=== PATIENT | female | born 1965 | race Hispanic/Latino ===

== ENCOUNTER 2018-01-17 15:31 | Observation (INO) | payer OTHER ==
[~2018-01-17] VITALS: Ht 152.4 cm; Wt 68.1 kg
[~2018-01-17 15:31] MED LIST: METFORMIN HCL500 MG PO; NAPROXEN PO; PRAVASTATIN SOD40 MG PO; TRAMADOL-ACETAMI1 EA PO; VITAMIN D250000 UNIT PO
[2018-01-17] MEDS ORDERED: ONDANSETRON HCL INJ 2 MG/ML VIAL IV STA ×2 (15:44→18:45)
[2018-01-17] MEDS ORDERED: SODIUM CHLORIDE 0.9% 1000ML 1,000 ML IV SCH (15:45)
--- NOTE | 2018-01-17 16:53 | Diagnostic Imaging Report ---
Examination: CT head without contrast Clinical Indication: Headache. Nausea. Vomiting. Photophobia. Dizziness. Technique: Transaxial noncontrast images from the skull base through the vertex were obtained. Sagittal and coronal reformatted images were done. Dose modulation, iterative reconstruction, and/or weight based adjustment of the mA/kV was utilized to reduce the radiation dose to as low as reasonably achievable. Comparison: None. Findings: Scalp: No abnormalities. Bones: Intact. No fractures. No blastic or lytic lesions. Brain sulci: Appropriate for patient's age. Ventricles: Normal in size and configuration. No hydrocephalus. Extra-axial space: No acute abnormalities. A 0.9 x 0.6cm (transverse x anteroposterior dimension) partially calcified lesion is seen along the right frontal convexity. No associated midline shift or vasogenic edema. Parenchyma: No abnormal densities. No masses, hemorrhage, or acute or chronic cortical based vascular insults. Suprasellar region: No abnormalities. Craniocervical junction: The foramen magnum is patent. No Chiari one malformation. Incidental findings: Mild inflammatory mucosal thickening of the left sphenoid sinus. Impression: 1. No acute intracranial abnormality. 2. Right frontal convexity partially calcified 0.9 x 0.6 cm lesion likely representing a meningioma. No associated midline shift or vasogenic edema. Signed by: Dr. Zhane Malagon M.D. on 01/17/2018 4:50 PM
[2018-01-17] MEDS ORDERED: HYDROCODONE/APAP 5MG-325MG TAB PO ONE (18:00)
[2018-01-17] MEDS ORDERED: MORPHINE SULFATE INJ 4 MG/ML INJ IV ONE (18:00)
[2018-01-17] MEDS ORDERED: METOCLOPRAMIDE HCL 10 MG/2ML VIAL IV ONE (18:30)
[2018-01-17] MEDS ORDERED: MECLIZINE HCL 12.5 MG TAB PO ONE (19:00)
[2018-01-17] MEDS ORDERED: MORPHINE SULFATE 2 MG/ML SYR IV PRN (19:15)
[2018-01-17] MEDS ORDERED: DEXTROSE 50% SYRINGE 50 ML IV PRN (19:15)
--- OUTSIDE RECORDS SUMMARY | 2018-01-17 19:24 | XMS REPORT ---
Author Author [facility] Address Unknown Phone Unavailable Care Team Providers Care Nurse Extern Name Role Phone Tato PUCKETT Unavailable Unavailable Problems This patient has no known problems. Allergies, Adverse Reactions, Alerts This patient has no known allergies or adverse reactions. Medications This patient has no known medications. Results Test Description Test Time Test Comments Text Results Atomic Results Result Comments CT BRAIN WO-HOPD 2018-01-17 16:43:00 [place] [address] Patient Name: CHELSEA IVEY MR #: [id number] : 1965 Age/Sex: 52/F Req #: [id number] [facility] Physician: Ordered by: JULIO PUCKETT MD Report #: [id number] Location: [facility] Room/Bed: Procedure: [id number] HOPD/CT BRAIN WO-HOPD Exam Date: 01/17/18 Exam Time: 1600 REPORT STATUS: Signed Examination: CT head without contrast Clinical Indication: Headache. Nausea. Vomiting. Photophobia. Dizziness. Technique: Transaxial noncontrast images from the skull base through the vertex were obtained. Sagittal and coronal reformatted images were done. Dose modulation, iterative reconstruction, and/or weight based adjustment of the mA/kV was utilized to reduce the radiation dose to as low as reasonably achievable. Comparison: None. Findings: Scalp: No abnormalities. Bones: Intact. No fractures. No blastic or lytic lesions. Brain sulci: Appropriate for patient's age. Ventricles: Normal in size and configuration. No hydrocephalus. Extra-axial space: No acute abnormalities. A 0.9 x 0.6cm (transverse x anteroposterior dimension) partially calcified lesion is seen along the right frontal convexity. No associated midline shift or vasogenic edema. Parenchyma: No abnormal densities. No masses, hemorrhage, or acute or chronic cortical based vascular insults. Suprasellar region: No abnormalities. Craniocervical junction: The foramen magnum is patent. No Chiari one malformation. Incidental findings: Mild inflammatory mucosal thickening of the left sphenoid sinus. I mpression: 1. No acute intracranial abnormality. 2. Right frontal convexity partially calcified 0.9 x 0.6 cm lesion likely representing a meningioma. No associated midline shift or vasogenic edema. Signed by: Dr. Zhane Malagon M.D. on 01/17/2018 4:50 PM Dictated By: ZHANE NAGEL MD 49 Transcribed By: NU on 01/17/181649 COPY TO: JULIO PUCKETT MD
[2018-01-17 20:35] VITALS: BP 126/70
[2018-01-17] MEDS: INSULIN REGULAR, HUMAN 100 UNIT/1 ML 3ML VIAL SQ SCH (21:00)
[2018-01-17] MEDS: SODIUM CHLORIDE 0.9% 1000ML 1,000 ML IV SCH (22:21)
[2018-01-17 22:31] VITALS: BP 126/70
[2018-01-17] MEDS: ONDANSETRON HCL INJ 2 MG/ML VIAL IV PRN (23:23)
[2018-01-18] VITALS (7 sets, daily range): BP systolic 109–133; BP diastolic 55–67
[2018-01-18] MEDS ORDERED: MECLIZINE HCL 12.5 MG TAB PO ONE
[2018-01-18 05:32] LABS: BASOPHILS # (AUTO) 0.1 (0.0-0.1); BASOPHILS % 0.9 % (0.0-1.0); EOSINOPHILS # (AUTO) 0.2 (0.0-0.4); HEMATOCRIT 31.8 % (34.2-44.1); HEMOGLOBIN 10.9 g/dL (12.0-16.0); LYMPHOCYTES # (AUTO) 2.7 (1.0-3.2); LYMPHOCYTES % 35.9 % (18.0-39.1); MEAN CORPUSCULAR HEMOGLOBIN 30.4 pg (28-32); MEAN CORPUSCULAR HGB CONC 34.3 g/dL (31-35); MEAN CORPUSCULAR VOLUME 88.8 fL (81-99); MONOCYTES # (AUTO) 0.5 (0.2-0.8); MONOCYTES % 6.4 % (4.4-11.3); NEUTROPHILS # (AUTO) 4.1 (2.1-6.9); NEUTROPHILS % 54.5 % (38.7-80.0); PLATELET COUNT 262 x10e3/uL (140-360); RED BLOOD COUNT 3.58 x10e6/uL (3.6-5.1); RED CELL DISTRIBUTION WIDTH 12.4 % (11.7-14.4)
[2018-01-18 06:00] LABS: ALANINE AMINOTRANSFERASE 19 IU/L (0-55); ALBUMIN 3.6 g/dL (3.5-5.0); ALBUMIN/GLOBULIN RATIO 1.3 (0.8-2.0); ALKALINE PHOSPHATASE 62 IU/L (40-150); ANION GAP 9.5 mmol/L (8-16); BLOOD UREA NITROGEN 12 mg/dL (7-26); BUN/CREATININE RATIO 17 (6-25); CALCIUM 8.9 mg/dL (8.4-10.2); CARBON DIOXIDE 23 mmol/L (22-29); CHLORIDE 106 mmol/L (98-107); CREATININE, SERUM 0.72 mg/dL (0.57-1.11); EST GLOMERULAR FILTRATION RATE > 60 ML/MIN (60-); GLUCOSE 118 mg/dL (74-118); POTASSIUM 3.5 mmol/L (3.5-5.1); SODIUM 135 mmol/L (136-145)
[2018-01-18] MEDS: SODIUM CHLORIDE 0.9% 1000ML 1,000 ML IV SCH ×4 (06:06→21:58)
[2018-01-18] MEDS: INSULIN REGULAR, HUMAN 100 UNIT/1 ML 3ML VIAL SQ SCH ×4 (07:30→20:51)
[2018-01-18] MEDS: ONDANSETRON HCL INJ 2 MG/ML VIAL IV PRN (10:18)
--- NOTE | 2018-01-18 12:52 | History and Physical ---
CLINICAL HISTORY: This is a 52-year-old woman with longstanding history of headaches, admitted via the [facility] because of nausea and vomiting for 2-day duration with headaches where the patient unable to tolerate oral pain medications including tramadol. Initially, the patient was reluctant to give any history of headaches; however upon further question, she states she has had headaches since age 10. Initially, she did not think, it was a migraine and therefore did not take any medications at that time. Over the past 3 years, her headache appears to be constant on a daily basis, particularly at night. In addition, she has depression, unable to sleep. She has taken sleeping pills in the past, but was told not to take it recently. Over the weekend, she had severe headaches, went to Dr. Cotot on Tuesday, was given injection as well as tramadol pills. She threw up the tramadol pills when she got home. Next day, she returned to Dr. Cotto still having the same headaches. She was then sent to the emergency room whereupon she was not vomiting when she arrived, but after giving intravenous narcotics, she started throwing up. The ER doctor felt she needs to admitted and she came in. PAST MEDICAL HISTORY: Remarkable for hyperlipidemia and diabetes. MEDICATIONS: At home included vitamin D, metformin 1000 mg p.o. daily, tramadol, acetaminophen, pravastatin 40 mg daily, and naproxen 50 mg b.i.d. PERSONAL/SOCIAL HISTORY: Denies smoking or drinking. She works in a daycare. FAMILY HISTORY: Father had stroke and diabetes. Mother had hypertension. No heart disease. REVIEW OF SYSTEMS: Noncontributory. PAST SURGICAL HISTORY: Included left foot surgery. PHYSICAL EXAMINATION GENERAL: She appears to be depressed, nauseated. VITAL SIGNS: Stable. CARDIAC: Jugular veins are not distended. S1 and S2 were regular. There are no appreciable murmurs. LUNGS: Clear. ABDOMEN: Soft. Bowel sounds are present. EXTREMITIES: No cyanosis, clubbing, or edema. LABORATORY STUDIES: CT scan of the head showed meningioma measuring 0.9 x 0.6 cm. IMPRESSION 1. Chronic migraines causing nausea and vomiting, exacerbated by narcotics. 2. Incidental meningioma measuring 0.9 x 0.6 cm. 3. Inability to void with history of urinary tract infection. 4. Diabetes. 5. Hyperlipidemia. 6. Anemia, hemoglobin of 10.9. RECOMMENDATIONS: Avoid excessive narcotics since it does cause her to throw up. Consult neurology for migraine. Intravenous fluids. Treatment for depression hoping that if she sleeps better, she may have less headaches. Job#: [id number] ELIZABETH cc:DR. ASHLI COTTO
[2018-01-18 13:11] LABS: FREE THYROXINE INDEX 2.3707 (1.4-3.8); THYROID STIMULATING HORMONE 1.032 uIU/mL (0.350-4.940)
[2018-01-18 13:11] LABS: BILIRUBIN,URINE NEGATIVE (NEGATIVE); CLARITY,URINE CLEAR (CLEAR); COLOR,URINE YELLOW (YELLOW); KETONES,URINE NEGATIVE (NEGATIVE); LEUKOCYTE ESTERASE ,URINE NEGATIVE (NEGATIVE); NITRITE,URINE NEGATIVE (NEGATIVE); PROTEIN,URINE DIPSTICK NEGATIVE (NEGATIVE); URINE UROBILINOGEN 0.2 mg/dL (0.2 - 1)
[2018-01-18 13:23] LABS: BACTERIA,URINE MODERATE /HPF; EPITHELIAL CELLS,URINE FEW /LPF; MUCUS,URINE MODERATE (RARE); RBC,URINE 0-5 /HPF (0-5)
--- NOTE | 2018-01-18 14:24 | Diagnostic Imaging Report ---
EXAM: ABDOMEN-1VIEW (KUB) DATE: 01/18/2018 11:31 AM INDICATION: Vomiting COMPARISON: None FINDINGS: Bowel Gas Pattern: Non-obstructive. Moderate proximal stool. Pneumoperitoneum: None. Suspicious Calcifications: None. Pelvic phleboliths. Other: None. IMPRESSION: No acute findings. Signed by: Dr. Jayden Logan MD on 01/18/2018 2:20 PM
[2018-01-18] MEDS ORDERED: MORPHINE SULFATE 2 MG/ML SYR IV PRN (15:30)
[2018-01-18] MEDS ORDERED: MORPHINE SULFATE INJ 4 MG/ML INJ IV PRN (15:45)
[2018-01-18] MEDS: PROMETHAZINE 25MG/ NS 50ML (IV) IV SCH ×2 (16:09→21:40)
[2018-01-18] MEDS: METHYLPREDNISOLONE SOD SUCC 125 MG/2ML VIAL IV SCH ×2 (16:09→21:39)
[2018-01-18] MEDS: VALPROATE SOD INJ 500 MG in SODIUM CHLORIDE 0.9% 100 ML 100 ML IV SCH ×2 (16:30→21:52)
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
[2018-01-19] VITALS: BP 98/55
[2018-01-19 04:00] VITALS: BP 99/52
[2018-01-19] MEDS: INSULIN REGULAR, HUMAN 100 UNIT/1 ML 3ML VIAL SQ SCH ×2 (07:30→11:30)
[2018-01-19 08:30] VITALS: BP 99/52
[2018-01-19] MEDS ORDERED: SERTRALINE HCL 50 MG TAB PO SCH (09:00)
[2018-01-19 09:27] VITALS: BP 99/52
[2018-01-19] MEDS: SODIUM CHLORIDE 0.9% 1000ML 1,000 ML IV SCH (11:19)
[2018-01-19] MEDS ORDERED: NAPROXEN 250 MG TAB PO PRN (11:30)
[2018-01-19] MEDS ORDERED: TRAMADOL/APAP 37.5MG-325MG TAB PO PRN ×2 (11:30)
[2018-01-19 11:50] VITALS: BP 109/56
[2018-01-19] MEDS ORDERED: ZOLOFT50 MG PO (12:10)
--- NOTE | 2018-01-19 12:41 | Discharge Summary ---
CLINICAL HISTORY: This is a 52-year-old woman admitted via the emergency room because of migraines associated with nausea and vomiting as well as REACTION TO MORPHINE which caused further vomiting. Please refer to my previous dictation concerning details of current illness, past medical history, personal and social history, family history, review of systems, physical examination, initial laboratory studies. HOSPITAL COURSE: The patient was admitted, treated with intravenous fluids. Neurology consultation was obtained with Dr. Cortez. She was given intravenous methylprednisolone 125 mcg every 6 hours for 2 doses as well as valproic acid 500 mg p.o. every 6 hours for 2 doses and promethazine 25 mg intravenously every 6 hours for 2 doses. The patient had symptomatic improvement, was able to eat. She is discharged on her previous home medications which included tramadol, naproxen, metformin and vitamin D2. During this hospitalization, she was found to be slightly anemic with hemoglobin of 10.9. The thyroid functions were negative. Iron and TIBC were normal, saturation 17%. Blood sugar was in the slightly elevated range. She is discharged to follow up further with Dr. Ashli Cotto, will see Dr. Cortez as needed. DISCHARGE DIAGNOSES: The same as on admission. CINDY MARSH MD Job#: [id number] EV cc:ASHLI COTTO MD
== END 2018-01-19 12:44 | disposition home or self-care (01) ==
LOC: FSED 15:31 → ERHOLD 19:21 → IMCU 20:47
PROVIDERS: ADMIT Internal Medicine Cardiovascular Disease; ATTEND Internal Medicine Cardiovascular Disease
DX: G43.011 Migraine without aura, intractable, with status migrainosus (principal); T40.2X5A Adverse effect of other opioids, initial encounter; I10 Essential (primary) hypertension; E11.9 Type 2 diabetes mellitus without complications; E78.5 Hyperlipidemia, unspecified; Z79.84 Long term (current) use of oral hypoglycemic drugs; D64.9 Anemia, unspecified; Z87.440 Personal history of urinary (tract) infections; D32.9 Benign neoplasm of meninges, unspecified; F32.9 Major depressive disorder, single episode, unspecified; G47.00 Insomnia, unspecified; R11.2 Nausea with vomiting, unspecified
CPT/HCPCS: 36415 ×3; 70450; 74018; 80053 ×2; 81001; 82948 ×3; 83540; 84436; 84443; 84466; 84479; 84484; 85025 ×2; 85651; 86039; 93005; 99284; G0378 ×3; J2270 ×2; J2405 ×2; J2550; J2765; J2930; J7030 ×3

== ENCOUNTER → 2022-05-07 | Outpatient (CLI) | payer OTHER ==
[~2022-05-07] MED LIST changes: +ZOLOFT50 MG PO
== END ==
LOC: US 07:38
PROVIDERS: ATTEND Internal Medicine
DX: R10.84 Generalized abdominal pain (principal)
CPT/HCPCS: 76700